=== PATIENT | male | born 1980 | race Caucasian/White ===

== ENCOUNTER 2017-10-28 21:01 | Emergency (ER) | payer BC ==
[2017-10-28] MEDS ORDERED: DIPHTH,PERTUSS(ACELL),TET 0.5 ML DISP.SYRIN IM ONE (21:07)
--- NOTE | 2017-10-28 21:08 | PDOC ---
Rapid Medical Evaluation Time Seen by Provider: 10/28/17 21:05 Medical Evaluation: Allergies Allergy/AdvReac Type Severity Reaction Status Date / Time No Known Allergies Allergy Verified 01/30/13 13:38 10/28/17 21:05 Pt presents with a laceration to the 3rd R finger. Pt states he cut it on glass. Does not remember last tetanus shot Exam: flap laceration to the back R 3rd finger. Able flex and extend it Orders: Boostrix Pt to proceed to the ED for further evaluation Discharge Disposition - Diagnosis Laceration - Referrals - Patient Instructions - Post Discharge Activity
[2017-10-28 21:19] VITALS: BP 156/99; PULSE 70; TEMP 98.2; BMI 38.0
--- NOTE | 2017-10-28 21:59 | PDOC ---
History of Present Illness - General Chief Complaint: Laceration Stated Complaint: LACERATION Time Seen by Provider: 10/28/17 21:05 History Source: Patient Exam Limitations: No Limitations - History of Present Illness Initial Comments: 10/28/17 21:55 36-year-old male status post injury to his right third digit after a porcelain glass broke sustaining a laceration to his finger. Patient states is not up-to- date on tetanus and has no other complaints at this time. Patient is not immunosuppressed or has history of diabetes. Timing/Duration: reports: just prior to arrival Severity: Yes: mild Location: reports: hands Respiratory Risk Factors: reports: no cause identified Associated Symptoms: reports: change in skin texture Past History - Travel Traveled outside of the country in the last 30 days: No - Past Medical History Allergies/Adverse Reactions: Allergies Allergy/AdvReac Type Severity Reaction Status Date / Time bee venom protein (honey bee) Allergy Severe Difficulty Verified 10/28/17 21:12 Breathing Home Medications: Ambulatory Orders NK [No Known Home Medication] 10/28/17 COPD: No - Suicide/Smoking/Psychosocial Hx Smoking History: Never smoked Have you smoked in the past 12 months: No Number of Cigarettes Smoked Daily: 0 Information on smoking cessation initiated: No Hx Alcohol Use: No Drug/Substance Use Hx: No Substance Use Type: None Patient Lives Alone: No Lives with/in: spouse/SO Review of Systems - Review of Systems Able to Perform ROS?: No Constitutional: No: Symptoms Reported Musculoskeletal: No: Symptoms Reported Integumentary: Yes: See HPI Neurological: No: Symptoms reported *Physical Exam - Vital Signs Last Vital Signs Temp Pulse Resp BP Pulse Ox 98.2 F 70 18 156/99 100 10/28/17 21:08 10/28/17 21:08 10/28/17 21:08 10/28/17 21:08 10/28/17 21:08 - Physical Exam General Appearance: Yes: Nourished, Appropriately Dressed. No: Apparent Distress Integumentary: positive: Normal Color, Warm, Moist, Other (semi-[place] filet laceration to dorsal aspect of rt 3rd digit) Neurologic: positive: Motor Strength 5/5 (ambulatory) Procedures - Laceration/Wound Repair Right Finger Wound Length: to 2.5 cm Wound Explored: clean Wound's Depth, Shape: superficial, linear Irrigated w/ Saline: Yes Betadine Prep: Yes Anesthesia: 1% Lidocaine Wound Repaired With: Sutures Suture Size/Type: 5:0 Number of Sutures: 5 Sterile Dressing Applied: Yes Splint Applied: Yes (metal finger splint) ED Treatment Course - Medications Given in the ED: ED Medications Discontinued Medications Generic Name Dose Route Start Last Admin Trade Name Dru PRN Reason Stop Dose Admin Diphtheria/Tetanus/Acell Pertussis 0.5 ml 10/28/17 21:07 10/28/17 21:31 Boostrix - IM 10/28/17 21:08 0.5 ml .ONCE ONE Administration Medical Decision Making - Medical Decision Making 10/28/17 21:58 patient with laceration to right third digit. Patient received tetanus. Laceration done without difficulty. Patient return in 14 days. *DC/Admit/Observation/Transfer Diagnosis at time of Disposition: Laceration - Discharge Dispostion Disposition: HOME Condition at time of disposition: Improved - Referrals - Patient Instructions Printed Discharge Instructions: DI for Laceration Repair Additional Instructions: Keep area clean and dry wearing a metal splint during the day to promote healing and decreased range of motion. Please take Tylenol Motrin for discomfort. Observe for redness swelling or drainage and if noted please return to the ER as this be a sign of infection. Otherwise return in 14 days for suture removal. - Post Discharge Activity
== END 2017-10-28 22:00 | disposition home or self-care (01) ==
LOC: JERFT 21:01
PROC: 0HQFXZZ Repair Right Hand Skin, External Approach (ICD-10-PCS; principal; 2017-10-28)
PROC: 3E0234Z Introduction of Serum, Toxoid and Vaccine into Muscle, Percutaneous Approach (ICD-10-PCS; 2017-10-28)
DX: S61.212A Laceration without foreign body of right middle finger without damage to nail, initial encounter (principal); W25.XXXA Contact with sharp glass, initial encounter; Y93.89 Activity, other specified; Y92.89 Other specified places as the place of occurrence of the external cause; Y99.8 Other external cause status
CPT/HCPCS: 90715; 99281-25